=== PATIENT | female | born 1935 | race Caucasian/White ===

== ENCOUNTER 2017-10-25 11:31 | Observation (INO) | payer MEDICARE, OTHER ==
[~2017-10-25] VITALS: Ht 167.6 cm; Wt 70.1 kg
--- NOTE | ~2017-10-25 | HP ---
PATIENT: BISMARK CHANG MEDICAL RECORD: [id number] ACCOUNT: [id number] LOCATION:[address] : 36 ADMISSION DATE: 10/25/17 PCP: ANGEL SAWANT DO HISTORY AND PHYSICAL EXAMINATION DATE OF ADMISSION: 10/25/2017 CHIEF COMPLAINT: Shortness of breath. HISTORY OF PRESENT ILLNESS: The patient is an 81-year-old female who has known aortic stenosis. She has seen Dr. Healy approximately 2 weeks ago, who had recommend surgery. She is also followed by Dr. Sawant. The patient is to see Dr. Mendieta tomorrow, but the patient states, last night, she became acutely short of breath. She has had tremendous shaking. She presents complaining of some chest pain. The patient was diaphoretic. It was felt the patient warranted admission. PAST MEDICAL HISTORY: She has had cholecystectomy. She is . She has history of hypertension, hyperlipidemia, and chronic allergies. She has had cataracts, arthritis in her hands as well as having had hysterectomy, cervical cancer. FAMILY HISTORY: Father of lung cancer in his 90s. Mother had diabetes mellitus as well as hypertension. ALLERGIES: THE PATIENT'S ALLERGIES ARE MILK PRODUCTS. MEDICATIONS: Include pravastatin 20 mg p.o. at bedtime, fenofibrate 160 mg p.o. daily, Norvasc 10 mg one p.o. a day, losartan 100 mg once a day, doxazosin 4 mg p.o. b.i.d., metoprolol succinate 50 mg p.o. daily, and fluticasone proprionate nasal spray two sprays daily. SOCIAL HISTORY: [place] [facility] [place] [facility] 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 She is not and has had no children. REVIEW OF SYSTEMS: CONSTITUTIONAL: She denies any headache, seizure, or syncope. Denies change in vision or auditory acuity. PULMONARY: She has reported increasing shortness of breath. She has had some mild chest pain. GASTROINTESTINAL: No chronic nausea, vomiting, melena, or hematochezia. GENITOURINARY: No urgency, frequency, or dysuria. PHYSICAL EXAMINATION: VITAL SIGNS: Today, the patient has temperature of 98.1, pulse 96, respirations 22, blood pressure 149/75, and O2 sat 100%. HEENT: Head is normocephalic. No lesions. Ears; TMs are clear. Eyes; pupils are equal, round, and reactive to light. Extraocular movements are intact. Nasal cavity, oral cavity, and oropharynx clear. NECK: Supple. There is no adenopathy. HEART: Slightly tachycardic. LUNGS: Clear. ABDOMEN: Soft. Bowel sounds positive. EXTREMITIES: Lower extremities have no edema. HISTORY AND PHYSICAL [id number] BISMARK CHANG LABORATORY DATA: The patient had CBC showing white count of 6.2, hemoglobin 14.1, hematocrit 41.9, and platelets were 169. Her sodium was 144, potassium 3.3, chloride was 109, CO2 was 21, BUN 14, creatinine 1.1, and glucose 135. Liver function was normal. Troponin was negative. ProBNP was 1068. Her CK-MB was 3.7. DIAGNOSTIC DATA: She had a chest x-ray. Chest x-ray showed COPD. No cardiomegaly. Her EKG showed normal sinus rhythm, left axis deviation, and right bundle-branch block at rate of approximately 95. ASSESSMENT: 1. Shortness of breath, possible early CHF, history of aortic stenosis. 2. Hypertension. 3. Hyperlipidemia. PLAN: The patient will be admitted. We will consult Dr. Mendieta. Also reconsult Dr. Healy. O2 supplementation as needed. The patient most likely will need aortic valve replacement. TRANSINT:[id number] Voice Confirmation ID: [id number] DOCUMENT ID: [id number] URIEL THOMPSON MD at 1334 CC: [id number] DICTATION DATE: 10/25/171814 SETTER OUT: 10/25/17 185 ADM IN [facility] [address] [place] [address]
--- NOTE | ~2017-10-25 | OP ---
PATIENT NAME: BISMARK CHANG MEDICAL RECORD: [id number] :37 LOCATION:D.M2 D.2132 ADMISSION DATE:10/25/17 SURGEON: DEBORAH DAVID MD DATE OF OPERATION: 10/26/2017 PROCEDURES: 1. Left heart catheterization. 2. Selective coronary angiography. 3. Left ventriculogram. 4. Bilateral selective renal angiography. DESCRIPTION OF THE PROCEDURE: After informed consent was obtained and after a detailed description of risks, benefits as well as alternative therapies, the patient elected to proceed with angiogram and heart catheterization. The right femoral area was prepped and draped in normal sterile fashion. Right femoral artery was cannulated via modified Seldinger technique with placement of 5-Uzbek sheath. All catheters exchanged through this sheath. 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 No renal artery stenosis. 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 No significant renal artery stenosis. Left ventriculogram was performed in standard 30 degree RING view with good cardiac wall motion throughout all segments. Overall ejection fraction estimated 60%. There is a 30-35 mm gradient across the aortic valve done. SELECTIVE CORONARY ANGIOGRAPHY: Left main, left anterior descending, left circumflex, right coronary all have mild irregularities, no flow-limiting stenosis. No stenosis greater than 10%. OVERALL IMPRESSION: 1. No significant coronary artery disease is present. 2. No significant renal artery stenosis is present. 3. Aortic stenosis is present with a gradient of 30 to 35 mm across the valve. TRANSINT:[id number] Voice Confirmation ID: [id number] DOCUMENT ID: [id number] DEBORAH DAVID MD at 1724 CC: ANGEL SAWANT [id number] DICTATION DATE: 10/26/17 1147 SEAM FINISHER: 10/26/17 1226 ADM IN [facility] [id number] [place] [address]
--- NOTE | ~2017-10-25 | HEMODYNAMI ---
PATIENT:BISMARK CHANG MEDICAL RECORD: [id number] : 37 [facility] ADMISSION DATE: 10/25/17 Generatedon:10/26/201711:47 Patient name: BISMARK CHANG Patient #: [id number] SSN: D OB: 1935 Date of study: 10/26/2017 Page: Of Hemodynamic Procedure Report Patient Data Patient Demographics Procedure consent was obtained First Name: BISMARK Gender: Female Last Name: BERNARDO : 1935 Middle Initial: S Age: 81 year(s) Patient #: [id number] Race: Unknown Additional ID: [id number] Contact details Address: [address] [place] [address] [address]ET State: [place] City: [place] Zip code: [address] Admission Admission Data Admission Date: 10/25/2017 Admission Time: 14:15 Room #: D2132 Weight (lbs.): 154.32 Weight (kg.): 70 Procedure Procedure Types Cath Procedure Diagnostic Procedure LHC LHC w/Coronaries Procedure Description Procedure Date Procedure Date: 10/26/2017 Procedure Start Time: 11:36 Procedure End Time: 11:44 Procedure Staff Name Function Len Mendieta MD Performing Physician Jimbo Gibbs RT Monitor Mati Barfield RN Nurse Shanae Lee RT Scrub Procedure Data Cath Procedure Fluoroscopy Diagnostic fluoroscopy Total fluoroscopy Time: 1.1 time: 1.1 min min Diagnostic fluoroscopy Total fluoroscopy dose: 199 dose: 199 mGy mGy Contrast Material Contrast Material Type Amount (ml) Isovue 300 68 Entry Location Entry Primary Successful Side Size Upsize Upsize Entry Closure Succes sful Closure Location (Fr) 1 (Fr) 2 (Fr) Remarks Device Remarks Femoral Right 5 Fr Exoseal artery Estimated blood loss: 10 ml Diagnostic catheters Device Type Used For End Catheter Placement MULTIPACK Pigtail 5 Fr Procedure catheter MULTIPACK JL 4.0 5Fr Procedure catheter MULTIPACK 3DRC 5Fr Procedure catheter Procedure Complications No complications Procedure Medications Medication Administration Route Dosage Oxygen etCO2 Nasal cannula 2 l/min Heparin Flush Bag added to field 2 bags (1000units/500ml NS) 0.9% NaCl I.V. 100 ml/hr Fentanyl I.V. 50 mcg Versed I.V. 1 mg Fentanyl I.V. 25 mcg Versed I.V. 0.5 mg Hemodynamics Rest Heart Rate: 72 (bpm) Pressure Samples Time Site Value (mmHg) Purpose Heart Use Rate(bpm) 11:38 LV 163/-3,14 Snapshot 69 11:38 LV 206/-12,14 Snapshot 68 11:38 AO 176/62(107) Pullback 69 11:38 LV 203/-12,13 Pullback 69 11:39 AO 159/64(101) Snapshot 69 Gradients Valve Time Site 1 Site 2 Mean SEP/DFP Peak To Heart Use (mmHg) (sec/min) Peak Rate (mmHg) (bpm) Aortic 11:38 LV AO 34 22 27 69 203/-12,13 176/62(107) Calculations Valve P-P Mean Valve Index Valve Source Name Gradient Area Flow (cm2) Aortic 27 34 27 34 Snapshots Pre Cath Intra NCS Post Cath Vital Signs Time Heart Resp SPO2 etCO2 NIBP (mmHg) Rhythm Pain Sedation Rate (ipm) (%) (mmHg) Status Level (bpm) 11:00:17 73 17 97 0 159/74(125) NSR 0 (11) 10(A) , No pain 11:04:38 71 16 93 0 152/72(123) NSR 0 (11) 10(A) , No pain 11:09:01 71 18 90 0 151/78(120) NSR 0 (11) 10(A) , No pain 11:13:27 71 17 95 30 166/70(122) NSR 0 (11) 10(A) , No pain 11:17:49 67 18 94 32.3 140/64(108) NSR 0 (11) 10(A) , No pain 11:22:11 71 17 94 9.7 132/63(107) NSR 0 (11) 10(A) , No pain 11:26:31 66 19 98 38.2 148/68(128) NSR 0 (11) 10(A) , No pain 11:30:49 68 17 94 32.2 139/65(114) NSR 0 (11) 9(A) , No pain 11:35:08 69 18 94 36.7 138/66(108) NSR 0 (11) 9(A) , No pain 11:39:30 69 16 94 38.2 157/69(132) NSR 0 (11) 9(A) , No pain 11:43:56 71 18 96 24.7 159/68(114) NSR 0 (11) 9(A) , No pain 11:45:36 72 17 97 37.4 155/68(119) NSR 0 (11) 9(A) , No pain Medications Time Medication Route Dose Verified Delivered Reason Notes Effe ctiveness by by 11:13:50 Oxygen etCO2 2 Len Mati Per Nasal l/min Gayatri Barfield RN physician cannula 11:13:59 Heparin Flush added 2 Len Mati used for Bag to bags Gayatri Barfield RN procedure (1000units/500ml field NS) 11:14:10 0.9% NaCl I.V. 100 Len Thorne Per ml/hr Gayatri Barfield RN physician 11:29:43 Fentanyl I.V. 50 Len Mati for mcg Gayatri Barfield RN sedation 11:29:49 Versed I.V. 1 mg Len Harrisony for Gayatri Barfield RN sedation 11:37:15 Fentanyl I.V. 25 Len Harrisony for mcg Gayatri Barfield RN sedation 11:37:20 Versed I.V. 0.5 Len Harrisony for mg Gayatri Barfield RN sedation Procedure Log Time Note 10:30:08 Jimbo AGUIRRE(R) sent for patient. Start room use. 10:38:09 Time tracking: Regular hours (M-F 7:00 - 5:00) 10:38:13 Plan of Care:Hemodynamics will remain stable., Cardiac rhythm will remain stable., Comfort level will be maintained., Respiratory function will remain adequate., Patient/ family verbilizes understanding of procedure., Procedure tolerated without complication., Recovers from procedure without complications.. 10:50:16 Patient received from PCU to CCL 3 Alert and oriented. Tansferred to table in Supine position. 10:50:17 Warm blankets applied, and riki hugger turned on for patient comfort. 10:50:18 Correct patient and procedure confirmed by team. 10:50:19 Signed procedure consent form obtained from patient. 10:50:19 ECG and BP/O2 sat monitors applied to patient. 10:50:20 Full Disclosure recording started 10:58:59 Vital chart was started 11:02:33 Baseline sample Acquired. 11:02:38 Rhythm: sinus rhythm 11:03:07 H&P Date Dictated: 10/26/2017 H&P Addendum completed by physician on day of procedure. (MUST COMPLETE FOR ALL OUTPATIENTS). 11:03:10 Pre-procedure instructions explained to patient. 11:03:10 Pre-op teaching completed and patient verbalized understanding. 11:03:14 Family in patients room. 11:03:16 Patient NPO since Midnight. 11:13:29 Is the patient allergic to Iodine/contrast media? No. 11:13:31 Is patient on blood thinner?No 11:13:32 Patient diabetic? No. 11:13:36 Previous problem with sedation/anesthesia? No ? 11:13:39 Snore? No 11:13:40 Sleep apnea? No 11:13:41 Deviated septum? No 11:13:41 Opens mouth fully? Yes 11:13:42 Sticks out tongue? Yes 11:13:44 Airway obstruction? No ? 11:13:47 Dentures? Yes OUT 11:13:50 Oxygen 2 l/min etCO2 Nasal cannula was administered by Mati Barfield RN; Per physician; 11:13:59 Heparin Flush Bag (1000units/500ml NS) 2 bags added to field was administered by Mati Barfield RN; used for procedure; 11:14:10 0.9% NaCl 100 ml/hr I.V. was administered by Mati Barfield RN; Per physician; 11:15:55 Pre procedure: right dorsailis pedis pulse 1+ Palpable, but thready & weak; easily obliterated 11:16:06 Zero performed for pressure channel P1 11:16:44 Unable to palpate radial pulse. 11:16:49 Patient pain scale 0/10 ?. 11:16:54 IV patent on arrival in left forearm with 0.9% NaCl at [facility]. 11:16:56 Lab results completed and on chart. 11:16:59 Right groin area was prepped with chlora-prep and draped in sterile fashion 11:17:00 Alarms reviewed by RRegina N. 11:17:01 Sharps counted by scrub and verified by R.N. 11:17:05 Use device set Femoral Dx 11:17:06 Tegaderm 4 x 4 (1626W) opened to sterile field. 11:17:07 ACIST Manifold (17306) opened to sterile field. 11:17:08 ACIST Hand Control (90987) opened to sterile field. 11:17:10 ACIST Syringe (74887) opened to sterile field. 11:17:10 Bag Decanter (2002S) opened to sterile field. 11:17:10 Medline Cath Pack ([id number]) opened to sterile field. 11:17:11 DIAGNOSTIC WIRE .035 260cm J wire (016113) opened to sterile field. 11:17:12 DIAGNOSTIC Multipack 5Fr catheter set ([id number]) opened to sterile field. 11:17:14 SHEATH Prelude 5Fr 0.035 (BLX-1U-86-035) opened to sterile field. 11:24:18 Patient Weight : 154.32 lbs 11::34 --------ALL STOP TIME OUT------ 11::34 Final Timeout: patient, procedure, and site verified with staff and physician. All members of the team are in agreement. 11:27:37 Right groin site verified by team. 11:27:39 Physical assessment completed. ASA score P 2 - A patient with mild systemic disease as per Len Mendieta MD. 11:27:43 Sedation plan: IV Moderate Sedation Medication:Versed, Fentanyl 11::43 Fentanyl 50 mcg I.V. was administered by Mati Barfield RN; for sedation; 11::49 Versed 1 mg I.V. was administered by Mati Barfield RN; for sedation; 11:35:56 Procedure started. 11:36:02 Local anesthetic to right femoral artery with Lidocaine 2% by Len Mendieta MD.INITIAL ACCESS ONLY 11:37:15 Fentanyl 25 mcg I.V. was administered by Mati Barfield RN; for sedation; 11:37:15 A 5 Fr sheath was inserted into the Right Femoral artery 11:37:20 Versed 0.5 mg I.V. was administered by Mati Barfield RN; for sedation; 11:37:49 A MULTIPACK Pigtail 5 Fr catheter was advanced over the wire and used for Procedure. 11:39:03 LV angiography performed. 11:39:08 LV gram done using RING 11:39:15 EF : 60 % 11:39:17 LV hemodynamics recorded. 11:39:20 Injector settings: Ml/sec: 10, Volume: 20, 11:39:22 Catheter removed. 11:39:34 A MULTIPACK JL 4.0 5Fr catheter was advanced over the wire and used for Procedure. 11:39:55 LCA angiography performed. 11:40:32 Catheter removed. 11:40:42 A MULTIPACK 3DRC 5Fr catheter was advanced over the wire and used for Procedure. 11:41:19 RCA angiography performed. 11:42:09 Left renal angiography performed. 11:42:12 Right renal angiography performed. 11:42:19 EXOSEAL 5Fr (EX500) opened to sterile field. 11:42:24 Catheter removed. 11:42:35 Sheath removed intact; hemostasis achieved with Exoseal to the Right Femoral artery. 11:42:36 Procedure ended.(Physican Out) 11:43:09 Fluoroscopy time 01.10 minutes. 11:43:14 Fluoroscopy dose: 199 mGy 11:43:14 Flurop Dose total: 199 11:43:17 Contrast amount:Isovue 300 68ml. 11:43:28 Insertion/operative site no bleeding no hematoma. 11:43:31 Post-op/insertion site Right Femoral artery dressed using a 4 x 4 and Tegaderm. 11:43:32 Post Procedure Pulses reassessed and unchanged 11:43:34 Post-procedure physical assessment completed. ASA score P 2 - A patient with mild systemic disease as per Len Mendieta MD. 11:43:37 Post procedure rhythm: unchanged. 11:43:39 Estimated blood loss: 10 ml 11:43:41 Post procedure instruction explained to patient.Patient verbalizes understanding. 11:43:41 Patient needs reinforcement of post procedure teaching. 11:43:45 Procedure and supply charges have been captured, reviewed, submitted and are correct. 11:43:47 Procedure Complication : No complications 11:44:05 Vital chart was stopped 11:44:05 See physician's report for complete and final results. 11:44:07 Report given to [facility]. 11:44:11 Patient transfered to [facility] with Bed. 11:44:17 Procedure ended. 11:44:17 Full Disclosure recording stopped 11:46:42 End room use (Document Last) Device Usage Item Name Manufacture Quantity Catalog Number Hospital Part Current M inimal Lot# / Charge Number Stock Stock Serial# Code Tegaderm 4 x 4 3M 1 [id number] [id number] 5 (1626W) ACIST Manifold Acist 1 44338 711416 206542 776262 5 (14068) [employer] ACIST Hand Acist 1 53193 714693 213573 818890 5 Control (50848) [employer] ACIST Syringe Acist 1 31734 279997 444193 570657 2 0 (08779) [employer] Bag Decanter Microtek 1 2001S 608535 02340 111353 5 (2001S) Medical Inc. Medline Cath Cardinal 1 [id number] 260645 75057 490925 5 Pack Health ([id number]) DIAGNOSTIC WIRE [facility] 1 881023 133178 452295 940761 3 0 .035 260cm J wire (719860) DIAGNOSTIC Cardinal 1 [id number] 731362 43636 457648 3 0 Multipack 5Fr Health catheter set (TE3529) SHEATH Prelude Merit 1 [id number] 962365 314668 394340 5 5Fr 0.035 Medical (CXV-2L-41-035) MULTIPACK Cardinal 1 680617 5 Pigtail 5 Fr Health catheter MULTIPACK JL Cardinal 1 [id number] 5 4.0 5Fr Health catheter MULTIPACK 3DRC Cardinal 1 [id number] 5 5Fr catheter Health EXOSEAL 5Fr Cardinal 1 EX500 442924 780006 449376 1 0 (EX500) Health Signature Audit [place] Stage Time Signature Unsigned Intra-Procedure 10/26/2017 Jimbo Gibbs 11:46:57 AM RT(R) Signatures Monitor : Jimbo Gibbs RT Signature : Date : Time : [facility] [address] [place] [address]
[~2017-10-25 11:31] MED LIST: CARDURA4 MG PO; COZAAR100 MG PO; FLUTICASONE PRO16 GM NASAL; HYDROCODONE-APA1 TAB PO; NORVASC10 MG PO; PRAVACHOL20 MG PO; TOPROL XL50 MG PO; TRIGLIDE160 MG PO
[2017-10-25 11:57] LABS: BASOPHILS 0.5 % (0-2); EOSINOPHILS 1.8 % (0-7); HEMATOCRIT 41.9 % (36.0-48.0); HEMOGLOBIN 14.1 g/dL (12-16); IMMATURE GRANULOCYTES 0.3 % (0-5); LYMPHOCYTES 24.1 % (15-50); MCH 30.2 pg (26.0-34.0); MCHC 33.7 g/dL (31.0-37.0); MCV 89.7 fL (80.0-100.0); MONOCYTES 6.9 % (2-11); NEUTROPHILS 66.4 % (40-80); PLATELET COUNT 169 10x3/uL (130-400); RBC 4.67 10x6/uL (4.00-5.40); RDW 13.6 % (11.5-14.5); WBC 6.2 10x3/uL (4.8-10.8)
[2017-10-25 12:15] LABS: ALKALINE PHOSPHATASE 75 U/L (46-116); ALT (SGPT) 27 U/L (10-68); BILIRUBIN - TOTAL 0.47 mg/dL (0.2-1.3); CALC OSMOLALITY 289 mosm/kg (275-300); CALCIUM 9.2 mg/dL (8.5-10.1); CARBON DIOXIDE 21.1 mmol/L (21.0-32.0); CHLORIDE - SERUM 109 mmol/L (98-107); CREATININE - SERUM 1.1 mg/dL (0.6-1.3); GLUCOSE 135 mg/dL (74-106); POTASSIUM - SERUM 3.3 mmol/L (3.5-5.1); PROTEIN - SERUM 7.6 g/dL (6.4-8.2); SODIUM 144 mmol/L (136-145); UREA NITROGEN 14 mg/dL (7-18); eGFR NON AFRICAN AMERICAN 51 mL/min (90-120)
[2017-10-25 12:27] LABS: CKMB 3.7 U/L (0.0-3.6); CREATINE KINASE 142 UL (21-215); PRO BNP 1068 pg/mL (0-450); TROPONIN-I < 0.017 ng/mL (0.000-0.060)
[2017-10-25 12:56] VITALS: BP 165/75
[2017-10-25 15:15] LABS: CKMB 3.1 U/L (0.0-3.6); CREATINE KINASE 128 UL (21-215)
[2017-10-25 15:23] VITALS: BP 148/78
[2017-10-25 19:49] VITALS: BMI 24.9
[2017-10-25 20:00] VITALS: BP 121/55
[2017-10-25] MEDS ORDERED: VITAMIN D250000 UNIT PO (20:00)
[2017-10-25] MEDS ORDERED: BAYER CHEWABLE81 MG PO (20:01)
[2017-10-25] MEDS ORDERED: MIRALAX17 GM PO (20:02)
[2017-10-25 21:12] LABS: CKMB 2.7 U/L (0.0-3.6); CREATINE KINASE 122 UL (21-215)
[2017-10-25 21:16] LABS: TROPONIN-I < 0.017 ng/mL (0.000-0.060)
[2017-10-26] VITALS: BP 143/68
[2017-10-26 04:00] VITALS: BP 156/59
[2017-10-26 04:01] LABS: BASOPHILS 0.4 % (0-2); EOSINOPHILS 4.3 % (0-7); HEMATOCRIT 36.7 % (36.0-48.0); HEMOGLOBIN 11.9 g/dL (12-16); IMMATURE GRANULOCYTES 0.2 % (0-5); LYMPHOCYTES 29.8 % (15-50); MCHC 32.4 g/dL (31.0-37.0); MCV 92.4 fL (80.0-100.0); MONOCYTES 9.4 % (2-11); NEUTROPHILS 55.9 % (40-80); PLATELET COUNT 134 10x3/uL (130-400); RBC 3.97 10x6/uL (4.00-5.40); RDW 13.7 % (11.5-14.5); WBC 4.7 10x3/uL (4.8-10.8)
[2017-10-26 04:30] LABS: ALKALINE PHOSPHATASE 49 U/L (46-116); ALT (SGPT) 21 U/L (10-68); BILIRUBIN - TOTAL 0.43 mg/dL (0.2-1.3); CALC OSMOLALITY 286 mosm/kg (275-300); CALCIUM 8.4 mg/dL (8.5-10.1); CHLORIDE - SERUM 111 mmol/L (98-107); CKMB 2.8 U/L (0.0-3.6); CREATINE KINASE 114 UL (21-215); CREATININE - SERUM 0.9 mg/dL (0.6-1.3); GLUCOSE 96 mg/dL (74-106); POTASSIUM - SERUM 3.5 mmol/L (3.5-5.1); PROTEIN - SERUM 6.2 g/dL (6.4-8.2); SODIUM 144 mmol/L (136-145); TROPONIN-I 0.029 ng/mL (0.000-0.060); UREA NITROGEN 13 mg/dL (7-18); eGFR NON AFRICAN AMERICAN 64 mL/min (90-120)
[2017-10-26 04:36] LABS: CARBON DIOXIDE 26.6 mmol/L (21.0-32.0)
[2017-10-26 08:17] VITALS: BP 156/58
[2017-10-26 08:47] VITALS: Ht 167.6 cm; Wt 70.1 kg
[2017-10-26 10:42] LABS: APPEARANCE HAZY (CLEAR); COLOR YELLOW (YELLOW)
[2017-10-26 10:43] LABS: BILIRUBIN NEGATIVE (NEGATIVE); GLUCOSE NEGATIVE (NEGATIVE); KETONE NEGATIVE (NEGATIVE); NITRITE NEGATIVE (NEGATIVE); PROTEIN NEGATIVE (NEGATIVE)
[2017-10-26 16:22] VITALS: BP 149/62
== END 2017-10-26 22:24 | disposition short-term general hospital (02) ==
LOC: D.ER 11:31 → D.EDHOLD 14:15 → D.M2 14:15 → OBSVTIME 10-26 22:23 → D.M2 10-26 22:24
PROVIDERS: Family Medicine
DX: I35.0 Nonrheumatic aortic (valve) stenosis (principal); I11.0 Hypertensive heart disease with heart failure; I50.9 Heart failure, unspecified; E78.5 Hyperlipidemia, unspecified